=== PATIENT | female | born 1965 | race Caucasian/White ===

== ENCOUNTER → 2020-08-24 | Outpatient (CLI) | payer OTHER | END | disposition home or self-care (01) | LOC: LAB EV 14:35 → LAB SHORT 14:35 | PROVIDERS: Family Medicine | DX: F11.20 Opioid dependence, uncomplicated (principal) | CPT/HCPCS: G0480 ==

== ENCOUNTER → 2021-02-22 | Outpatient (CLI) | payer OTHER ==
[2021-02-22 16:38] LABS: U Benzodiazapine Screen DETECTED; U Buprenorphine Screen DETECTED; U Methadone Screen DETECTED
== END | disposition home or self-care (01) ==
LOC: LAB SHORT 14:22
PROVIDERS: Family Medicine
DX: Z51.81 Encounter for therapeutic drug level monitoring (principal); Z79.899 Other long term (current) drug therapy
CPT/HCPCS: G0480

== ENCOUNTER 2021-03-09 16:10 | Emergency (ER) | payer OTHER ==
[~2021-03-09] VITALS: Ht 170.2 cm; Wt 77.1 kg
[2021-03-09] MEDS ORDERED: OLANZAPINE5 M1 PO (18:12)
[2021-03-09] MEDS ORDERED: ZOLOFT100 M8 PO (18:12)
[2021-03-09] MEDS ORDERED: EUTHYROX125 MCG PO (18:13)
[2021-03-09] MEDS ORDERED: LAMO100 PO (18:13)
[2021-03-09] MEDS ORDERED: IBUP600 PO ×2 (18:39→18:46)
[2021-03-09] MEDS ORDERED: CYCL10 PO ×2 (18:39→18:46)
== END 2021-03-09 18:49 | disposition home or self-care (01) ==
LOC: ER 16:10
DX: M51.36 Other intervertebral disc degeneration, lumbar region (principal); F17.210 Nicotine dependence, cigarettes, uncomplicated; Z79.899 Other long term (current) drug therapy
CPT/HCPCS: 72100; 96372; 99283-25; J1885

== ENCOUNTER 2021-10-29 07:07 | Emergency (ER) | payer OTHER ==
[~2021-10-29] VITALS: Ht 172.7 cm; Wt 77.1 kg
[~2021-10-29 07:07] MED LIST: CYCL10 PO; EUTHYROX125 MCG PO; IBUP600 PO; LAMO100 PO; OLANZAPINE5 M1 PO; ZOLOFT100 M8 PO
[2021-10-29] MEDS ORDERED: PRAM.125 PO (08:04)
[2021-10-29] MEDS ORDERED: Prozac20 MG PO (08:04)
[2021-10-29 08:27] LABS: BASOPHILS PERCENT AUTO 0 % (0-2); EOSINOPHILS ABSOLUTE AUTO 0.01 K/mm3 (0.00-0.68); EOSINOPHILS PERCENT AUTO 0 % (0-6); Hematocrit 42.4 % (33.0-51.0); Hemoglobin 14.5 g/dL (11.5-16.0); IMMATURE GRAN ABSOLUTE AUTO 0.01 K/mm3 (0.00-0.10); IMMATURE GRAN PERCENT AUTO 0 % (0-1); LYMPHOCYTES ABSOLUTE AUTO 0.78 K/mm3 (0.84-5.20); LYMPHOCYTES PERCENT AUTO 19 % (21-46); MONOCYTES ABSOLUTE AUTO 0.18 K/mm3 (0.16-1.47); MONOCYTES PERCENT AUTO 4 % (4-13); Mean Corpuscular HGB 29.7 pg (26.0-34.0); Mean Corpuscular HGB Conc 34.2 g/dL (31.5-36.5); Mean Corpuscular Volume 87 fL (80-100); NEUTROPHILS ABSOLUTE AUTO 3.15 K/mm3 (1.96-9.15); NEUTROPHILS PERCENT AUTO 76 % (41-73); Platelet Count 220 K/mm3 (150-400); RDW Coefficient Variation 11.9 % (11.7-14.2); RDW Standard Deviation 38.2 fL (35.1-46.3); Red Blood Cell Count 4.88 M/mm3 (3.80-5.20); White Blood Cell Count 4.13 K/mm3 (4.00-11.30)
[2021-10-29 08:49] LABS: Albumin, Blood 3.6 g/dL (3.4-5.0); Bilirubin, Total 0.4 mg/dL (0.1-1.0); Bun/Creatinine Ratio 9.7 (12.0-20.0); Calcium, Blood 8.8 mg/dL (8.5-10.1); Creatinine, Blood 0.83 mg/dL (0.40-1.00); Globulin, Blood 3.6 g/dL (2.2-4.0); Potassium, Blood 3.6 mmol/L (3.5-5.5); Total Protein, Blood 7.2 g/dL (6.4-8.2)
[2021-10-29] MEDS ORDERED: CIME400 PO (10:02)
[2021-10-29] MEDS ORDERED: PROM12.5S PR (10:02)
== END 2021-10-29 10:48 | disposition home or self-care (01) ==
LOC: ER 07:07
PROVIDERS: Emergency Medicine
DX: U07.1 COVID-19 (principal); K21.9 Gastro-esophageal reflux disease without esophagitis; F17.210 Nicotine dependence, cigarettes, uncomplicated; Z79.899 Other long term (current) drug therapy
CPT/HCPCS: 36415; 80053; 83690; 85025; C9113; J2765

== ENCOUNTER 2022-11-26 06:57 | Day surgery (SDC) | payer OTHER ==
[~2022-11-26] VITALS: Ht 170.2 cm; Wt 78.0 kg
[2022-11-26] VITALS (14 sets, daily range): BP systolic 102–151; BP diastolic 45–133
[~2022-11-26 06:57] MED LIST changes: +CIME400 PO; +FAMO40 PO; +MELATONIN5 M1 PO; +PRAM.125 PO; +PRAZ2 PO; +PROM12.5S PR; +Prozac20 MG PO
--- NOTE | 2022-11-26 07:56 | NUR ---
11/26/22 0756 Maricarmen Cool HISTORY, CHART, MEDICATIONS AND ALLERGIES REVIEWED BEFORE START OF PROCEDURE. PATIENT CONFIRMS NPO STATUS AND AGREES WITH SCHEDULED PROCEDURE. 3-LEAD EKG REVIEWED WITH PHYSICIAN PRIOR TO START OF PROCEDURE. MONITOR INTACT WITH CONTINUOUS PULSE OXIMETRY,CAPNOGRAPHY, 3-LEAD EKG, INTERMITTENT BP. SUPPLEMENTAL O2 TO BE TITRATED THROUGHOUT PROCEDURE TO MAINTAIN O2 SATURATION ABOVE 90%. PATIENT DETERMINED TO BE ASA APPROPRIATE FOR PROPOFOL SEDATION PRIOR TO START OF PROCEDURE BY DR. LOVE
--- NOTE | 2022-11-26 08:38 | NUR ---
Discharge instructions reviewed with patient. Patient verbalizes understanding. Copy given to patient to take home.
--- NOTE | 2022-11-26 08:50 | NUR ---
Discharged via wheelchair to private car for ride home.
== END 2022-11-26 22:40 | disposition home or self-care (01) ==
LOC: ORSCMMR 06:57 → ORD 08:00 → ORSCMMR 22:40
PROVIDERS: Internal Medicine Gastroenterology
PROC: 0DB98ZX Excision of Duodenum, Via Natural or Artificial Opening Endoscopic, Diagnostic (ICD-10-PCS; principal; 2022-11-26 08:00)
PROC: 0DB48ZX Excision of Esophagogastric Junction, Via Natural or Artificial Opening Endoscopic, Diagnostic (ICD-10-PCS; principal; 2022-11-26 08:00)
PROC: 0DB68ZX Excision of Stomach, Via Natural or Artificial Opening Endoscopic, Diagnostic (ICD-10-PCS; principal; 2022-11-26 08:00)
PROC: 0DB58ZX Excision of Esophagus, Via Natural or Artificial Opening Endoscopic, Diagnostic (ICD-10-PCS; principal; 2022-11-26 08:00)
DX: R13.10 Dysphagia, unspecified (principal); R11.2 Nausea with vomiting, unspecified; K29.70 Gastritis, unspecified, without bleeding; K31.9 Disease of stomach and duodenum, unspecified; F32.A Depression, unspecified; F41.9 Anxiety disorder, unspecified; E03.9 Hypothyroidism, unspecified; F17.210 Nicotine dependence, cigarettes, uncomplicated; Z79.899 Other long term (current) drug therapy
CPT/HCPCS: 88305; 88342; A9270; J2250; J2704; J7120

== ENCOUNTER → 2023-05-05 | Outpatient (CLI) | payer MEDICARE, OTHER ==
[2023-05-05 15:39] LABS: Free Thyroxine 0.96 ng/dL (0.70-1.60)
[2023-05-05 15:41] LABS: Thyroid Stimulating Hormone 1.29 uIU/mL (0.360-4.800)
[2023-05-07 08:11] LABS: A/G RATIO 1.7 (1.2-2.2); ALKALINE PHOSPHATASE, S 99 IU/L (44-121); ALT (SGPT) 17 IU/L (0-32); AST (SGOT) 18 IU/L (0-40); BILIRUBIN, TOTAL 0.2 mg/dL (0.0-1.2); BUN 12 mg/dL (6-24); BUN/CREATININE RATIO 13 (9-23); CALCIUM, SERUM 8.9 mg/dL (8.7-10.2); CARBON DIOXIDE, TOTAL 23 mmol/L (20-29); CHLORIDE, SERUM 102 mmol/L (96-106); CREATININE, SERUM 0.94 mg/dL (0.57-1.00); GLOBULIN, TOTAL 2.5 g/dL (1.5-4.5); GLUCOSE, SERUM 108 mg/dL (70-99); PHOSPHORUS, SERUM 3.8 mg/dL (3.0-4.3); POTASSIUM, SERUM 4.2 mmol/L (3.5-5.2); PROTEIN, TOTAL, SERUM 6.7 g/dL (6.0-8.5); SODIUM, SERUM 141 mmol/L (134-144)
== END | disposition home or self-care (01) ==
LOC: LAB 13:19 → LAB SHORT 13:19
PROVIDERS: Internal Medicine Hematology & Oncology
DX: D47.3 Essential (hemorrhagic) thrombocythemia (principal); R94.5 Abnormal results of liver function studies; R53.83 Other fatigue
CPT/HCPCS: 80053; 80069; 84439; 84443